=== PATIENT | female | born 1945 | race Caucasian/White ===

== ENCOUNTER 2019-05-14 08:47 | Day surgery (SDC) | payer MEDICARE, OTHER ==
[~2019-05-14] VITALS: Ht 152.4 cm; Wt 122.6 kg
[2019-05-14] MEDS ORDERED: LACTATED RINGERS 1,000 ML IV SCH (09:37)
[2019-05-14 09:41] VITALS: BP 132/90
[2019-05-14] MEDS ORDERED: PANT20TA2 PO (09:46)
[2019-05-14] MEDS ORDERED: NAPR220C2 PO (09:46)
[2019-05-14] MEDS ORDERED: VENL25TA PO (09:46)
[2019-05-14] MEDS ORDERED: SPIR25TA5 PO (09:46)
[2019-05-14] MEDS ORDERED: METO25TA35 PO (09:46)
[2019-05-14] MEDS ORDERED: GEMF600T8 PO (09:46)
[2019-05-14] MEDS ORDERED: ALBU0.63 NEB (09:46)
[2019-05-14] MEDS ORDERED: BACL20TA PO (09:46)
[2019-05-14] MEDS ORDERED: FLUT12HF2 INH (09:46)
[2019-05-14] MEDS ORDERED: CELE50CA PO (09:46)
[2019-05-14] MEDS ORDERED: SIMV5TAB14 PO (09:46)
[2019-05-14] MEDS ORDERED: APIX5TAB PO (09:59)
[2019-05-14] MEDS ORDERED: PLEASE ENTER HEIGHT AND WEIGHT MC SCH (10:00)
[2019-05-14] MEDS ORDERED: GABAPENTIN 300 MG CAPSULE PO ONE (10:30)
[2019-05-14] MEDS ORDERED: ACETAMINOPHEN 500 MG TABLET PO ONE (10:30)
[2019-05-14 10:33] LABS: BASOPHILS # (AUTO) 0.03 x10^3/uL (0-0.1); BASOPHILS % (AUTO) 0 % (0-1); EOSINOPHILS # (AUTO) 0.02 x10^3/uL (0-0.4); EOSINOPHILS % (AUTO) 0 % (1-7); LYMPHOCYTES # (AUTO) 1.29 x10^3/uL (1-3.4); LYMPHOCYTES % (AUTO) 18 % (22-44); MD NO; MEAN CORPUSCULAR HEMOGLOBIN 30.5 pg (27.0-34.8); MEAN CORPUSCULAR HGB CONC 32.9 g/dL (32.4-35.8); MEAN CORPUSCULAR VOLUME 92.7 fL (80-100); MEAN PLATELET VOLUME 8.6 fL (7.4-10.4); MONOCYTES # (AUTO) 0.58 x10^3/uL (0.2-0.8); MONOCYTES % (AUTO) 8 % (2-9); NEUTROPHILS % (AUTO) 73 % (42-75); PLATELET COUNT 309 x10^3/uL (130-400); RED BLOOD COUNT 4.65 x10^6/uL (3.82-5.3); RED CELL DISTRIBUTION WIDTH 13.6 % (9.6-15.2)
[2019-05-14 10:43] LABS: ALANINE AMINOTRANSFERASE 25 U/L (12-78); ALBUMIN 3.1 g/dL (3.4-5.0); ANION GAP 10 mmol/L (5-15); CALCIUM 12.2 mg/dL (8.5-10.1); CHLORIDE 101 mmol/L (98-107); CREATININE 0.98 mg/dL (0.55-1.02)
[2019-05-14 10:46] LABS: ALKALINE PHOSPHATASE 203 U/L (45-117); BILIRUBIN,TOTAL 0.6 mg/dL (0.2-1.0); TOTAL PROTEIN 8.6 g/dL (6.4-8.2)
[2019-05-14 10:47] LABS: INTERNATIONAL NORMALIZED RATIO 1.1 (0.93-1.1); PROTHROMBIN TIME 11.5 Seconds (9.6-11.5)
[2019-05-14] MEDS ORDERED: FENTANYL PF 100 MCG/2ML ONE ×3 (11:17→12:51)
[2019-05-14] MEDS ORDERED: hydrALAzine 20 MG/ML, 1ML IV PRN (11:30)
[2019-05-14] MEDS ORDERED: HYDROmorphone 2 MG/ML, 1ML IVPush PRN (11:30)
[2019-05-14] MEDS ORDERED: HALOPERIDOL 5 MG/ML IV PRN (11:30)
[2019-05-14] MEDS ORDERED: MEPERIDINE/PF 25MG/ML,1ML IVPush PRN (11:30)
[2019-05-14] MEDS ORDERED: LABETALOL 5MG/ML, 20ML IV PRN (11:30)
[2019-05-14] MEDS ORDERED: OXYcodone 5 MG/5 ML ORAL.SOL UDC PO PRN (11:30)
[2019-05-14] MEDS ORDERED: PROMETHAZINE 25 MG/ML, 1ML IV PRN (11:30)
[2019-05-14] MEDS ORDERED: ESMOLOL 100 MG/10 ML ONE (11:45)
[2019-05-14] MEDS ORDERED: METOPROLOL 1 MG/ML, 5ML ONE ×2 (11:50→12:35)
[2019-05-14] MEDS ORDERED: OXYcodone 5 MG/5 ML ORAL.SOL UDC ONE (12:52)
[2019-05-14] MEDS: FENTANYL PF 100 MCG/2ML IV PRN ×3 (12:56→13:23)
[2019-05-14] MEDS ORDERED: METOPROLOL 1 MG/ML, 5ML IVPush PRN (13:00)
[2019-05-14] MEDS ORDERED: CEFAZOLIN 1,000 MG ONE (13:09)
[2019-05-14] MEDS ORDERED: ROCURONIUM 10MG/ML,5ML ONE (13:10)
[2019-05-14] MEDS ORDERED: DEXAMETHASONE 4 MG/ML, 1ML ONE (13:10)
[2019-05-14] MEDS ORDERED: NEOSTIGMINE 1 MG/ML, 10ML ONE (13:10)
[2019-05-14] MEDS ORDERED: PROPOFOL 10 MG/ML, 20ML ONE (13:10)
[2019-05-14] MEDS ORDERED: SUCCINYLCHOLINE 20 MG/ML, 10ML ONE (13:10)
[2019-05-14] MEDS ORDERED: GLYCOPYRROLATE 0.2MG/1ML, 5ML ONE (13:10)
[2019-05-14] MEDS ORDERED: ONDANSETRON 2MG/ML, 2ML ONE (13:10)
== END 2019-05-14 16:40 | disposition home or self-care (01) ==
LOC: OUT 08:47
PROVIDERS: ATTEND Orthopaedic Surgery
DX: M84.421A Pathological fracture, right humerus, initial encounter for fracture (principal); C79.51 Secondary malignant neoplasm of bone; I48.91 Unspecified atrial fibrillation; I10 Essential (primary) hypertension; E78.5 Hyperlipidemia, unspecified; E66.01 Morbid (severe) obesity due to excess calories; K21.9 Gastro-esophageal reflux disease without esophagitis; G47.33 Obstructive sleep apnea (adult) (pediatric); J44.9 Chronic obstructive pulmonary disease, unspecified; Z79.1 Long term (current) use of non-steroidal anti-inflammatories (NSAID); Z79.899 Other long term (current) drug therapy; Z85.3 Personal history of malignant neoplasm of breast; Z88.0 Allergy status to penicillin; Z91.040 Latex allergy status
CPT/HCPCS: 24516; 36415; 73060; 80053; 85025; 85610; 85730; 88307; 88311; 88341; 88342; 93005; C1713; J0330; J0690; J1100; J2405; J2704; J3010; J7120; 76000; J2710